=== PATIENT | female | born 2000 ===

== ENCOUNTER 2021-09-24 23:50 | Inpatient (IN) ==
[2021-09-25] MEDS ORDERED: ACETAMINOPHEN 325 MG TABLET PO PRN (00:03)
[2021-09-25] MEDS ORDERED: MEPERIDINE 50 MG/1 ML VIAL IV PRN (00:03)
[2021-09-25] MEDS ORDERED: ONDANSETRON 4 MG/2 ML VIAL IV PRN (00:03)
[2021-09-25] MEDS ORDERED: BUTORPHANOL 2 MG/ML VIAL IV PRN (00:03)
[2021-09-25] MEDS: LACTATED RINGERS 1,000 ML IV SCH ×2 (00:29→04:31)
[2021-09-25 00:41] LABS: Basophils % 0.4 % (0.0-0.8); Eosinophils % 0.2 % (0.00-10.9); Hematocrit 37.1 VOL% (35.7-47.0); Hemoglobin 12.3 GM/DL (12.0-16.0); Immature Granulocytes % 1.1 %; Immature Granulocytes Absolute 0.09 #; Lymphocytes # 1.9 10*3/uL (1.4-4.0); Lymphocytes % 23.1 % (21.3-54.2); Mean Corpuscular HGB Conc 33.2 GM/DL (32-36); Mean Corpuscular Volume 93.2 FL (87-102); Mean Platelet Volume 12.4 FL (9.6-12.0); Monocytes % 14.7 % (1.7-12.7); Neutrophils % 60.5 % (38.7-73.9); Platelet Count 194 T/CUMM (130-400); Red Blood Count 3.98 MC/CUMM (3.8-5.5); Red Cell Distribution Width 13.6 % (9.3-17.3); White Blood Count 8.1 T/CUMM (4-12)
[2021-09-25 00:58] LABS: Alanine Aminotransferase 15 U/L (13-56); Albumin 3.1 G/DL (3.4-5.0); Alkaline Phosphatase 137 U/L (45-117); Aspartate Amino Transferase 14 U/L (0-37); Bilirubin,Total < 0.39 MG/DL (0.20-1.00); Blood Urea Nitrogen 8 MG/DL (7-18); Calcium 9.1 MG/DL (8.5-10.1); Carbon Dioxide 28 MMOL/L (21-32); Estimated Glom Filtration Rate 100 ML/MIN; Glucose 75 MG/DL (74-106); Osmolality,Calculated 271.7 MOS/KG (273-304); Potassium 3.5 MMOL/L (3.5-5.1); Sodium 138 MMOL/L (136-145); Total Protein 7.6 G/DL (6.4-8.2)
[2021-09-25 01:05] LABS: Mucus,Urine Occasional /LPF (Occasional); RBC,Urine 4 /HPF (0-4); Squamous Epithelial Cell,Urine Occasional /HPF (0-10)
[2021-09-25 01:06] LABS: Bilirubin,Urine Negative (Negative); Blood, Urine Negative (Negative); Glucose,Urine (UA) Negative (Negative); Ketones,Urine Negative (Negative); Nitrite,Urine Negative (Negative); Protein,Urine Negative; Urine Appearance Clear (Clear); Urine Color Yellow (Yellow); Urine Urobilinogen 0.2 EU/DL (<2.0)
[2021-09-25] MEDS ORDERED: miSOPROStoL 200 MCG TABLET ONE (04:51)
[2021-09-25] MEDS ORDERED: OXYTOCIN/LR 20 UNIT/1,000 ML BAG IV ONE ×3 (04:51→07:44)
[2021-09-25] MEDS ORDERED: TRANEXAMIC ACID 1,000 MG/10 ML VIAL ONE (04:51)
[2021-09-25] MEDS ORDERED: SODIUM CHLORIDE 0.9% 0 ML IV ONE (04:51)
[2021-09-25] MEDS ORDERED: METHYLERGONOVINE 0.2 MG/1 ML AMP ONE (04:52)
[2021-09-25] MEDS ORDERED: CARBOPROST TROMETHAMINE 250 MCG/ML AMP IM ONE (04:52)
[2021-09-25 05:29] LABS: Cord Venous Blood HCO3 22.6 MMOL/L; Cord Venous Blood PCO2 45.3 MMHG; Cord Venous Blood PO2 41.2
[2021-09-25] MEDS ORDERED: BENZOCAINE 20%/MENTHOL 0.5% SPRAY 56 GM CAN TOP PRN (07:44)
[2021-09-25] MEDS ORDERED: oxyCODONE/ACETAMINOPHEN 5-325 MG TABLET PO PRN ×2 (07:44)
[2021-09-25] MEDS ORDERED: WITCH HAZEL PADS 100/JAR TOP PRN (07:44)
[2021-09-25] MEDS ORDERED: HYDROCORTISONE 2.5% RECTAL CREAM 30 GM TUBE TOP PRN (07:44)
[2021-09-25] MEDS ORDERED: RHO(D) IMMUNE GLOBULIN 300 MCG SYRINGE IM ONE (07:44)
[2021-09-25] MEDS ORDERED: DIPH/TET/ACEL PERT BOOSTER VACCINE 0.5 ML VIAL IM ONE (07:44)
[2021-09-25] MEDS ORDERED: BISACODYL 10 MG SUPP RECTAL PRN (07:44)
[2021-09-25] MEDS ORDERED: MEASLES/MUMPS/RUBELLA VACCINE 0.5 ML VIAL SUBCUT ONE (07:44)
[2021-09-25] MEDS ORDERED: LANOLIN 50% CREAM 0.3 OZ TUBE TOP PRN (07:44)
[2021-09-25] MEDS: IBUPROFEN 800 MG TABLET PO PRN ×3 (09:45→23:50)
[2021-09-25] MEDS: DOCUSATE SODIUM 100 MG CAPSULE PO SCH (21:25)
[2021-09-26 05:33] LABS: Basophils % 0.4 % (0.0-0.8); Eosinophils % 0.1 % (0.00-10.9); Hematocrit 31.9 VOL% (35.7-47.0); Hemoglobin 10.6 GM/DL (12.0-16.0); Immature Granulocytes % 1.5 %; Immature Granulocytes Absolute 0.15 #; Lymphocytes # 0.9 10*3/uL (1.4-4.0); Lymphocytes % 8.8 % (21.3-54.2); Mean Corpuscular HGB Conc 33.2 GM/DL (32-36); Mean Corpuscular Volume 93.5 FL (87-102); Mean Platelet Volume 12.1 FL (9.6-12.0); Monocytes % 9.7 % (1.7-12.7); Neutrophils % 79.5 % (38.7-73.9); Platelet Count 145 T/CUMM (130-400); Red Blood Count 3.41 MC/CUMM (3.8-5.5); Red Cell Distribution Width 13.7 % (9.3-17.3); White Blood Count 9.9 T/CUMM (4-12)
[2021-09-26] MEDS: DOCUSATE SODIUM 100 MG CAPSULE PO SCH ×3 (09:32→22:29)
[2021-09-26] MEDS: IBUPROFEN 800 MG TABLET PO PRN (14:08)
[2021-09-27 08:10] VITALS: BP 120/69
[2021-09-27] MEDS: DOCUSATE SODIUM 100 MG CAPSULE PO SCH (09:00)
[2021-09-27] MEDS: IBUPROFEN 800 MG TABLET PO PRN (09:00)
== END 2021-09-27 12:36 | disposition home or self-care (01) | DRG 560 ==
LOC: N.LD 23:50 → N.OB 09-25 09:07
PROVIDERS: ADMIT Obstetrics & Gynecology; ATTEND Obstetrics & Gynecology